=== PATIENT | male | born 1955 | race Caucasian/White ===

== ENCOUNTER 2017-01-16 09:38 | Emergency (ER) | payer OTHER ==
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
[2017-01-16 11:49] VITALS: BP 172/85; PULSE 60; RESP 16; TEMP 97.1
== END 2017-01-16 11:49 | disposition home or self-care (01) ==
LOC: EC 09:38
DX: S06.0X0A Concussion without loss of consciousness, initial encounter (principal); M47.812 Spondylosis without myelopathy or radiculopathy, cervical region; W17.89XA Other fall from one level to another, initial encounter; Y93.89 Activity, other specified
CPT/HCPCS: 70450; 72125; 99283

== ENCOUNTER 2021-04-30 10:59 | Emergency (ER) | payer MEDICARE, OTHER ==
[2021-04-30] MEDS ORDERED: SODIUM CHLORIDE 0.9% 500 ML 500 ML IV STA (14:44)
[2021-04-30] MEDS ORDERED: ACETAMINOPHEN TAB 500 MG TAB PO STA (14:44)
[2021-04-30] MEDS ORDERED: IBUPROFEN 400 MG TAB PO STA (14:44)
[2021-04-30] MEDS ORDERED: SODIUM CHLORIDE 0.9% 50 ML IVPB ONE (15:30)
--- NOTE | 2021-04-30 15:47 | ED ---
URI HPI - General Chief Complaint: Upper Respiratory Infection Stated Complaint: SOB, covid exposure Time Seen by Provider: 04/30/21 14:46 Source: patient, RN notes reviewed Mode of arrival: ambulatory Limitations: no limitations - History of Present Illness Initial Comments: Patient is a 66-year-old male presenting to the emergency Department with comp laints of viral type symptoms over the past week. He is complaining of a headache, body aches, cough and some mild shortness of breath. He states a few members of his family have recently tested positive for covid. He is unvaccinated. He denies any chest pains, no abdominal pains. He has been having intermittent nausea but no vomiting or diarrhea. He did not take any Tylenol or Motrin today. He's been having intermittent fevers. Patient has no further complaints. Upon arrival to the ER, he does have a slight fever 100.6, rest of vitals normal. - Related Data Home Medications Medication Instructions Recorded Confirmed Cyanocobalamin (Vitamin B-12) 1,000 mcg PO DAILY 04/30/21 04/30/21 [Vitamin B-12] Echinacea 500 mg PO DAILY 04/30/21 04/30/21 Allergies Allergy/AdvReac Type Severity Reaction Status Date / Time No Known Allergies Allergy Verified 04/30/21 15:49 Review of Systems ROS Statement: Those systems with pertinent positive or pertinent negative responses have been documented in the HPI. ROS Other: All systems not noted in ROS Statement are negative. Past Medical History Past Medical History: No Reported History Past Surgical History: No Surgical Hx Reported Past Psychological History: No Psychological Hx Reported Smoking Status: Never smoker Past Alcohol Use History: Occasional Past Drug Use History: None Reported General Exam - General Exam Comments Initial Comments: GENERAL: Patient is well-developed and well-nourished. Patient is nontoxic and in no acute distress. HEAD: Atraumatic, normocephalic. EYES: Pupils equal round and reactive to light, extraocular movements intact, sclera anicteric, conjunctiva are normal. Eyelids were unremarkable. ENT: Moist mucous membranes. NECK: Normal range of motion, supple without lymphadenopathy or JVD. LUNGS: Unlabored respirations. Breath sounds clear to auscultation bilaterally and equal. No wheezes rales or rhonchi. HEART: Regular rate and rhythm without murmurs, rubs or gallops. ABDOMEN: Soft, nontender, normoactive bowel sounds. No guarding, no rebound. No masses appreciated. MUSCULOSKELETAL: Normal extremities with adequate strength and normal range of motion, no pitting or edema. No clubbing or cyanosis. NEUROLOGICAL: Patient is alert and oriented x 3. SKIN: Warm, Dry, normal turgor, no rashes or lesions noted. Limitations: no limitations Course Vital Signs 04/30/21 12:15 Temperature 100.6 F H Pulse Rate 78 Respiratory 18 Rate Blood Pressure 145/76 O2 Sat by Pulse 95 Oximetry Medical Decision Making - Medical Decision Making Patient is a 66-year-old male here for upper respiratory viral type symptoms over the past week. He has been exposed to coated with many family members. He did arrive slightly febrile 100.6. Rest of exam is unremarkable. His rapid test is positive. Patient does qualify for monoclonal antibodies, he does agree to this. He received his antibodies without complications. He also given Tylenol and Motrin and some fluids. He is reporting improvement in his s ymptoms. He is stable for discharge. Return parameters were discussed with him and he verbalized understanding. Case discussed with Dr. Alonzo. - Lab Data Lab Results 04/30/21 Range/Units 12:20 Coronavirus (PCR) Detected A (Not Detectd) Disposition Clinical Impression: COVID-19 Disposition: HOME SELF-CARE Condition: Stable Instructions (If sedation given, give patient instructions): Coronavirus Disease 2019 (COVID-19) Additional Instructions: Please return to the Emergency Department if symptoms worsen or any other concerns. Continue to alternate between Tylenol and ibuprofen for fever and body aches. Increase your fluids. Follow up with your primary care as needed. Is patient prescribed a controlled substance at d/c from ED?: No Referrals: None,Stated [Primary Care Provider] - 1-2 days Time of Disposition: 17:29
[2021-04-30] MEDS ORDERED: BAMLANIVIMAB (EUA) 700 MG, ETESEVIMAB (EUA) 1,400 MG in SODIUM CHLORIDE 0.9% 50 ML IVPB ONE (16:00)
[2021-04-30 18:06] VITALS: BP 132/65; PULSE 87; RESP 20; TEMP 98.5
== END 2021-04-30 18:06 | disposition home or self-care (01) ==
LOC: EC 10:59
DX: U07.1 COVID-19 (principal)
CPT/HCPCS: 99284; 96360; 96361; 87635; J3490